=== PATIENT | female | born 1995 | race Caucasian/White ===

== ENCOUNTER 2021-10-21 18:32 | Emergency (ER) | payer OTHER ==
[~2021-10-21] VITALS: Ht 167.6 cm; Wt 56.7 kg
[2021-10-21] MEDS ORDERED: ONDANSETRON ODT 4 MG TAB PO ONE (19:45)
[2021-10-21 21:43] LABS: Urine WBC None Seen /hpf (0 - 5)
[2021-10-21 21:53] LABS: Urine Amorphous Crystal MOD /hpf (None Seen); Urine Bacteria NONE SEEN /hpf (None Seen); Urine Blood TRACE /uL (Negative); Urine Budding Yeast FEW /hpf (None Seen); Urine Specific Gravity 1.013 (1.001-1.035)
[2021-10-22 01:25] VITALS: BP 112/76
[2021-10-22] MEDS ORDERED: DOXY10TA PO (05:36)
== END 2021-10-22 01:30 | disposition home or self-care (01) ==
LOC: ER 18:32
DX: O20.0 Threatened abortion (principal); Z3A.01 Less than 8 weeks gestation of pregnancy
CPT/HCPCS: 36415; 76801; 76817; 81001; 84702; 99284; Q0162

== ENCOUNTER 2024-05-13 08:13 | Day surgery (SDC) | payer BC ==
[2024-05-10 10:40] LABS: Urine Bacteria None Seen /hpf (None Seen)
[2024-05-10 11:19] LABS: Urine Blood Negative /uL (Negative); Urine Clarity Turbid (Clear); Urine Color Light-Yellow (Yellow); Urine Protein, UAD Negative (Negative); Urine Specific Gravity 1.013 (1.001-1.035); Urine Squamous Epithelial Cell FEW /hpf (<5); Urine Urobilinogen Normal (Negative); Urine WBC <1 /hpf (0 - 5)
[2024-05-10 11:32] LABS: Basophils # (auto) 0 10 ^3/uL (0-0.2); Basophils % (auto) 0.5 % (0.0-2.0); Eosinophils # (auto) 0.1 10 ^3/uL (0-0.8); Eosinophils % (auto) 1.4 % (0.0-7.0); Hematocrit 41.8 % (36.0-46.0); Hemoglobin 14.4 g/dL (12.2-16.2); Lymphocytes # (auto) 2.2 10 ^3/uL (0.4-5.4); Lymphocytes % (auto) 25.9 % (10.0-50.0); Mean Corpuscular Hemoglobin 30.3 pg (28.0-32.0); Mean Corpuscular Hgb Conc. 34.5 g/dL (32.0-36.0); Mean Corpuscular Volume 87.8 fL (80.0-100.0); Monocytes # (auto) 0.9 10 ^3/uL (0-1.3); Neutrophils # (auto) 5.4 10 ^3/uL (1.6-8.6); Neutrophils % (auto) 62.2 % (37.0-80.0); Platelet Count (auto) 332 10^3/uL (140-450); Red Blood Cells 4.76 10^6/uL (4.0-5.20); Red Cell Distribution Width 12.4 % (11.8-14.3); White Blood Cell 8.6 10^3/uL (4.4-10.8)
[2024-05-10 11:39] LABS: INR 1.02 (0.9-1.15); Prothrombin Time 10.8 sec (9.3-11.8)
[2024-05-10 11:40] LABS: Alanine Aminotransferase 17 U/L (7-40); Albumin 4.4 g/dL (3.2-4.8); Alkaline Phosphatase 82 U/L (46-116); Anion Gap 9 (5-15); BUN/Creatinine Ratio 8.9 (10.0-20.0); Bilirubin, Total 0.4 mg/dL (0.2-1.0); Calcium 10.3 mg/dL (8.7-10.4); Carbon Dioxide 26 mmol/L (20-31); Chloride 104 mmol/L (98-107); Glucose 92 mg/dL (74-106); Potassium 3.9 mmol/L (3.5-5.1); Sodium 139 mmol/L (136-145); Total Protein 7.4 g/dL (5.7-8.2)
[2024-05-10 11:54] LABS: Aspartate Aminotransferase 10 U/L (13-40); Blood Urea Nitrogen 7 mg/dL (9-23)
[~2024-05-13] VITALS: Ht 30.5 cm; Wt 0.5 kg
[~2024-05-13 08:13] MED LIST: DOXY10TA PO
--- NOTE | 2024-05-13 08:46 | DVHHP ---
ADMIT DATE: 05/13/2024 CHIEF COMPLAINT: Desires D and C, suction for missed . HISTORY OF PRESENT ILLNESS: The patient is a 29-year-old 1, para 0 female admitted for D and C, suction secondary to missed AB. The patient was seen in our office, noted to have no heart. After her first visit she had heart and then the following visit she had no heart. The baby was measuring 8 weeks, where she should have been 9 weeks and 5 days. There was subchorionic bleed. The patient was given the option of having conservative management with drugs versus D and C she opted for D and C. The ultrasound was done in the office and the patient was given the option of having an official ultrasound, but she opted out of that and wanted to just proceed with D and C. PAST MEDICAL HISTORY: None. PAST SURGICAL HISTORY: None. SOCIAL HISTORY: None. FAMILY HISTORY: None. OBSTETRIC AND GYNECOLOGIC HISTORY: Primigravid. REVIEW OF SYSTEMS: Consistent with HPI. PHYSICAL EXAMINATION: VITAL SIGNS: Stable, afebrile. HEENT: Within normal limits. CARDIOVASCULAR: Regular rate and rhythm. LUNGS: Clear to auscultation. BREASTS: Symmetrical. No masses. ABDOMEN: Soft, nontender. PELVIC: Cervix closed, thick, high. Uterus 10-week size. Adnexa nonpalpable. EXTREMITIES: No clubbing, cyanosis or edema. IMPRESSION: Missed . PLAN: D and C, suction curettage. Informed consent obtained. Risks, complication of surgery including infection, bleeding, perforation of uterus, hematoma formation, injury to surrounding organs, possibility of DVT, pulmonary embolism, risk of anesthesia discussed with the patient. Options reviewed. All questions answered. All options discussed with the patient. The patient wishes to proceed with planned procedure. All questions answered to the patient's satisfaction. Jania Crook DO M[facility]/LORETO TID: [id number] RECEIPT: [id number]
[2024-05-13] MEDS ORDERED: fentaNYL CITRATE 100 MCG/2 ML VL ONE (09:15)
[2024-05-13] MEDS ORDERED: PROPOFOL 10 MG/ML 20 ML IV ONE (09:15)
[2024-05-13] MEDS ORDERED: OXYTOCIN 10UNIT/ML 1ML VIAL ONE (09:15)
[2024-05-13] MEDS ORDERED: ZOFR4T PO (09:25)
[2024-05-13] MEDS ORDERED: HYDR-4072 PO (09:25)
[2024-05-13] MEDS ORDERED: IBUP-1456 PO (09:25)
[2024-05-13] MEDS ORDERED: ONDANSETRON HCL 4 MG/2 ML VIAL IV PRN (09:30)
[2024-05-13] MEDS ORDERED: LACTATED RINGER'S 1,000 ML IV SCH (09:30)
[2024-05-13] MEDS ORDERED: RHO (D) IMMUNE GLOBULIN 300 MCG INJ IM PRN (09:30)
[2024-05-13] MEDS ORDERED: MEPERIDINE HCL (25 MG/ML) 1ML VIAL ONE (09:46)
[2024-05-13] MEDS ORDERED: ONDANSETRON HCL 4 MG/2 ML VIAL ONE (09:47)
[2024-05-13] MEDS ORDERED: DexAMETHasone SOD PHOS 10MG/1ML VIAL INJ ONE (09:47)
[2024-05-13] MEDS: ceFAZolin 2 GM/D5W100ml 100 ML IV ONE (09:55)
[2024-05-13 09:59] VITALS: O2SAT 95
[2024-05-13 10:00] VITALS: TEMP 97.3
[2024-05-13] MEDS ORDERED: MEPERIDINE HCL (25 MG/ML) 1ML VIAL IV PRN (10:15)
[2024-05-13] MEDS ORDERED: ACETAMINOPHEN IV 1000 MG/100ML (10MG/ML) IV PRN (10:15)
[2024-05-13] MEDS ORDERED: HYDROmorphone HCL 2 MG/ML VL/or syr IV PRN (10:15)
[2024-05-13] MEDS: ONDANSETRON HCL 4 MG/2 ML VIAL IV ONE (10:23)
[2024-05-13 10:30] VITALS: BP 102/58; PULSE 80; RESP 18; O2SAT 95
--- NOTE | 2024-05-13 16:00 | DVHOP2 ---
Operative Report DATE OF OPERATION: 05/13/24 PREOPERATIVE DIAGNOSES: missed POSTOPERATIVE DIAGNOSES: same SURGEON: Salo Crook D.O. ANESTHESIOLOGIST: michael TYPE OF ANESTHESIA : MAC CONSENT: The patient was informed of the risks and benefits of the procedure. The patient was informed of the risks and benefits of the procedure. These include but are not limited to , complications of anesthesia, postoperative infection, incomplete relief of symptoms, recurrence of symptoms, damage to blood vessels, nerves and tendons, deep venous thrombosis, pulmonary embolism and possible need for repeat surgery in the future. FINDINGS: Cervix is 1 cm and uterus 9 weeks' size. Adnexa nonpalpable. TISSUE TO PATHOLOGY: POC. PROCEDURES: Dilatation and curettage and suction curettage. PROCEDURE IN DETAIL: The patient was taken to the operating room where she was placed under MAC anesthesia. The patient was then prepped and draped in the usual sterile manner in dorsal lithotomy position. Bladder was emptied using straight catheter. Examination under anesthesia revealed the above findings. A weighted speculum was placed in the vagina. Anterior lip of the cervix was grasped using a single-tooth tenaculum. Cervix was dilated. Uterus was sounded to 9 cm. Products of conception were evacuated using suction curette, size #7, sharp curetting of endometrial cavity was done. The patient tolerated the procedure well. All the instruments were removed from vagina and cervix. The patient was taken to the recovery room in a stable condition. ESTIMATED BLOOD LOSS: 200 mL SALO CROOK DO May 13, 2024 16:00
--- NOTE | 2024-05-13 16:01 | DVHDS2 ---
Physician Discharge Progress N Final Diagnosis: missed ab Operations or Procedures: Operations or Procedures d and c,suction currettage Condition on Discharge: Good Disposition: Home Discharge Instructions: Diet: Regular Activity: Light activity Follow Up/Referral: saumya Medications: nisha blanco Follow Up Care: Specialist: 1w Discharge Statement: "Patient was advised to return to the ER or call 911 if any headaches, dizziness, shortness of breath, chest pain, abdominal pain, bleeding, fevers, or worsening of medical condition. Patient was counseled about treatment plan, medications, possible side effects, patientverbalized understanding. All questions were answered to the best of my ability. This discharge took greater then 30 minutes in planning, reviewing documentation, counseling the patient, and discussing with other team members." SALO LONDON DO May 13, 2024 16:01
--- NOTE | 2024-05-13 16:01 | POSTOP ---
Post-Operative Note Post-Operative Note Preop Diagnosis missed ab Postop Diagnosis: missed ab Operation performed d and c,suction currettage Specimen poc Anesthesia: Mac Anesthesiologist: nuygen Blood Loss(fluid mgmt) 200ml Surgeon Salo Crook Implant na Complications & Mgmt none Date 05/13/24 Time 16:00 SALO CROOK DO May 13, 2024 16:01
== END 2024-05-13 10:52 | disposition home or self-care (01) ==
LOC: SUR 08:13
PROVIDERS: ATTEND Obstetrics & Gynecology
DX: O02.1 Missed abortion (principal)
CPT/HCPCS: 36415; 59820; 80053; 81001; 81025; 84702; 85025; 85610; 85730; 86850; 86900; 86901; 88305; J1100; J2175; J2405; J2590; J2704; J3010